=== PATIENT | female | born 1995 | race Caucasian/White ===

== ENCOUNTER 2024-07-21 01:13 | Emergency (ER) | payer OTHER, SELFPAY ==
[2024-07-21 01:24] VITALS: BP 130/86
[2024-07-21 01:52] VITALS: BP 135/79
[2024-07-21 02:00] VITALS: BP 127/88
[2024-07-21] MEDS: NSS 500 IV (02:20)
--- NOTE | 2024-07-21 02:30 | ED.GENMED ---
History of Present Illness
General
Chief Complaint: Headache
Source: patient
Exam Limitations: none
Time Seen by Provider: 07/21/24 01:30
Nursing documentation reviewed up to this point in time: agreed with
History of Present Illness
History of Present Illness:
Patient with history of 'migraine headache', presents to ED secondary to worsening headache tonight, despite taking Tylenol. Unfortunately, for the past 10 years, she has been experiencing very frequent headache at least multiple times during the
week, despite evaluation with a neurologist. There is family history of migraine headache. In addition, patient reports sore throat and painful swallowing over the past 2 days. However, patient denies loss of appetite and has been eating
normally. Denies nausea, vomiting, or diarrhea. Denies blurred vision. Denies dizziness. Denies recent travel. Denies sick contact. Denies recent change in medications or diet. Of note, patient has felt some weakness in her right arm over the
past 2 days as well.
Past History
Past History
ED Past Medical History: None
ED Past Surgical History: Other (Noncontributory)
Social History
Tobacco: Smoker (1/2ppd x 9y)
Alcohol: Occasional
Drug: Marijuana
Personal: Single
Living: with family
Family History
Family History: Other (Noncontributory)
Review of Systems
Review of Systems
Allergies reviewed?: Yes
All Other Systems: ROS reviewed and negative except as documented in HPI and ROS
Constitutional: Reports no symptoms; Denies fever
EENT: Reports sore throat
Respiratory: Reports no symptoms
Cardiac: Reports no symptoms
ABD/GI: Reports no symptoms
Musculoskeletal: Reports no symptoms
Skin: Reports no symptoms
Neurological: Reports headache and weakness; Denies dizzy or numbness
Phy Exam
Physical Exam
Physical Exam:
Physical Exam
General: mild distress, not acutely ill. afebrile
Head: nc/at. eomi
Neck: supple. no meningeal signs. normal posterior pharynx
Heart: s1/s2 regular rate and rhythm, no murmur. equal radial pulses.
Lungs: no acute respiratory distress. clear bilaterally
Abdomen: normal bowel sounds. not tender.
Neuro: alert and oriented x 3. no focal sensory/motor deficit. normal speech. normal gait.
Skin: no rash
Psychiatric: well kept. interactive and cooperative
Extremities: no edema. no calf tenderness.
Course
Orders/Labs/Results
Orders:
Orders
07/21/24 02:00
Test Result ONCE
07/21/24 02:01
CT Head W/o Iv Contrast Urgent
Comment:
Reason For Exam: headache
0.9% Sodium Chloride 500 ml [Nss] 500 ml IV BOLUS
Sumatriptan Succinate [Imitrex] 6 mg SC NOW STA
07/21/24 02:11
Basic Metabolic Panel Urgent
COVID-19 Antigen Urgent
Source: Nasal Swab
Complete Blood Count/No Diff Urgent
HCG, Serum Qualitative Screen Urgent
Magnesium Urgent
INF RAPID [Influenza A+B Rapid Molecular] Urgent
CAMRYN Source: Nasal Swab
Specimen Description:
07/21/24 03:49
Dexamethasone Pf [Decadron] 10 mg PO NOW STA
Ketorolac [Toradol] 30 mg IV NOW STA
Abnormal Lab Results
07/21/24
02:11
WBC 12.6 H 10^3/uL
(4.8-10.8)
Plt Count 598 H 10^3/uL
(130-400)
Calcium 10.5 H mg/dl
(8.4-10.2)
07/21/24 02:11
07/21/24 02:11
Vital Signs
Initial and Last Documented VS:
Initial Vital Signs
Temp Pulse Resp BP Pulse Ox
98.6 F 70 20 130/86 98
07/21/24 01:24 07/21/24 01:24 07/21/24 01:24 07/21/24 01:24 07/21/24 01:24
Last Documented Vital Signs
Temp Pulse Resp BP Pulse Ox
98.6 F 65 18 130/78 99
07/21/24 01:24 07/21/24 04:55 07/21/24 04:55 07/21/24 04:55 07/21/24 04:55
MDM/Problems Addressed
MDM/Problems Addressed:
CT head: no acute findings. Otherwise, patient remains afebrile, hemodynamically stable, and neurologically intact. Patient's presenting symptoms concerning for potential migraine headache versus cervical radiculopathy. As such, patient will be
advised to take NSAIDs along with muscle relaxant, as well as Medrol Dosepak, along with recommendation to follow-up with PCP/neurology for an outpatient evaluation.
*Critical Care Note
Total Time (30-74mins, 75-104mins- exclusive of procedures): Not Applicable
ED Attending Note
-
Portions of this chart may have been created with voice recognition software.� Occasional wrong word or��sound alike� substitutions may have occurred due to the inherent limitations of voice recognition software.
Discharge Plan
Departure
Patient Disposition: Home (Routine Discharge)
Date of Disposition: 07/21/24
Time of Disposition: 04:53
Patient with high blood pressure during this ER visit?: Yes
Discharge Problem:
Headache
Instructions: Headache, Adult (DC)
Prescriptions:
New
diclofenac sodium 50 mg tablet,delayed release (DR/EC)
50 mg PO Q12H PRN (Reason: Pain) Qty: 20 0RF
methylprednisolone [Medrol (Timo)] 4 mg tablets,dose pack
4 mg PO DAILY Qty: 21 0RF
No Action
clindamycin HCl 300 MG capsule
300 mg PO Q6 Qty: 40 0RF
ciprofloxacin HCl 500 MG tablet
500 mg PO BID Qty: 20 0RF
Referrals:
Salbador Hart MD [Active] -
Activity Restrictions/Additional Instructions:
As discussed, please follow-up with your primary care physician and/or referred neurologist for further evaluation and treatment. Your prescriptions have been sent electronically to [facility] pharmacy in [place].
Interventions
Interventions:
*Risk Screen - Suicide Last Done: 07/21/24 01:24
*General Assessment Last Done: 07/21/24 01:58
*Neglect/Abuse Screening Last Done: 07/21/24 01:24
*Nursing Disposition Last Done: 07/21/24 05:10
ED- Neurological Assessment Last Done: 07/21/24 01:58
Discharge Date and Time
Discharge Date/Time: 07/21/24 05:11
Print Language: YI
[2024-07-21 02:37] LABS: HCG, Serum Qualitative Screen Negative
[2024-07-21 02:42] LABS: Blood Urea Nitrogen 12 mg/dl (7-17); Calcium 10.5 mg/dl (8.4-10.2); Carbon Dioxide 23 mmol/L (22-30); Chloride 103 mmol/L (98-107); Glucose 94 mg/dl (70-99); Hematocrit 44.2 % (37.0-47.0); Hemoglobin 14.9 g/dL (12.0-16.0); Magnesium 1.8 mg/dl (1.6-2.3); Mean Corp Hgb Conc. 33.7 g/dL (33.0-37.0); Mean Corpuscular Hgb 30.8 pg (27.0-31.0); Mean Corpuscular Volume 91.5 fL (81.0-99.0); Mean Platelet Volume 9.7 fL (7.4-10.4); Platelet Count 598 10^3/uL (130-400); Potassium 4.3 mmol/L (3.5-5.1); Red Blood Cell Count 4.83 10^6/uL (4.20-5.40); Red Cell Dist. Width 13.2 % (11.5-14.5); Sodium 138 mmol/L (135-145); White Blood Cell Count 12.6 10^3/uL (4.8-10.8); eGFR > 60.00
[2024-07-21 02:43] LABS: COVID-19 Antigen Negative (Negative)
[2024-07-21] MEDS: IMITREX 6 MG SC (02:49)
[2024-07-21 03:00] VITALS: BP 144/98
[2024-07-21] MEDS: TORADOL 30 MG IV (03:57)
[2024-07-21] MEDS: DECADRON 10 MG PO (03:57)
[2024-07-21 04:55] VITALS: BP 130/78
== END 2024-07-21 05:11 | disposition home or self-care (01) ==
LOC: EMR 01:13
PROVIDERS: EMERGENCY PHYSICIAN Emergency Medicine; FAMILY PHYSICIAN Family Medicine
DX: R51.9 Headache, unspecified (principal); F17.210 Nicotine dependence, cigarettes, uncomplicated
CPT/HCPCS: 99284; 96374; 96372; 70450; 80048; 83735; 84703; 85027; 87502; 87811

== ENCOUNTER 2024-08-01 21:15 | Emergency (ER) | payer OTHER, SELFPAY ==
[2024-08-01 21:20] VITALS: BP 143/94
--- NOTE | 2024-08-01 23:33 | ED.GENMED ---
History of Present Illness
General
Chief Complaint: Skin Problem
Time Seen by Provider: 08/01/24 23:33
History of Present Illness
History of Present Illness:
TIME OF INITIAL ENCOUNTER: 12:25 AM
HPI: The patient presents with a few days of right sided upper medial buttock pain. The pain has been coming increasingly worse. She was recently on a Medrol Dosepak but not currently on any antibiotics. She has had no fevers. Her boyfriend used
tweezers and tried to drain some of the fluid but this was unsuccessful.
EXAM:
GENERAL: Well appearing in no distress
HEENT: Moist oral mucosa
NEUROLOGIC: Excellent strength all extremities, no obvious coordination deficits
PSYCHIATRIC: Appropriate mental status, normal insight and judgement
EXTREMITIES: Nontender, no edema, moves all extremities equally
SKIN: There is a 3 x 3 cm area of abscess to the medial upper buttock region
NUMBER AND COMPLEXITY OF PROBLEMS ADDRESSED AT THE ENCOUNTER
� Chronic conditions affecting care: History of migraines
� Acute Exacerbation and/or Progression of Chronic Illness: This is an acute problem
� Differential Diagnosis includes: Pilonidal abscess, buttock abscess, seroma, cellulitis
AMOUNT AND/OR COMPLEXITY OF DATA TO BE REVIEWED AND ANALYZED
� I performed an independent evaluation of and my interpretation is:
EKG:
CT:
X-rays:
Laboratory Studies:
Other:
� Review of other/old records: The patient was seen here for headache a couple of weeks ago and was also seen here for a migraine 7 years ago
� Clinical information was obtained by an independent historian: I spoke to her boyfriend at bedside
� Prescriptions/Medications Considered but not given: Offered and considered narcotic analgesia however the patient states she did not tolerate these in the past
� Further testing considered but not performed: No indication for blood work
RISK OF COMPLICATIONS AND/OR MORBIDITY OR MORTALITY OF PATIENT MANAGEMENT
� Social determinants of health affecting care: Lives at home
� Discussion with other providers:
� Escalation of care including admission/observation vs risk of discharge considered: I drained moderate amount of pus from the abscess. Will give a dose of Toradol for pain. She does not appear septic.
ANY OTHER UPDATES:
Past History
Past History
ED Past Medical History: None
ED Past Surgical History: Other (Noncontributory)
Social History
Tobacco: Smoker (1/2ppd x 9y)
Alcohol: Occasional
Drug: Marijuana
Personal: Single
Living: with family
Family History
Family History: Other (Noncontributory)
Phy Exam
Physical Exam
Physical Exam:
See HPI
Course
Orders/Labs/Results
Orders:
Orders
08/02/24 00:39
Ketorolac [Toradol] 30 mg IM NOW STA
Sulfamethox./Trimethoprim Ds [Bactrim Ds 800 mg/160 mg] 1 tablet PO NOW STA
Vital Signs
Initial and Last Documented VS:
Initial Vital Signs
Temp Pulse Resp BP Pulse Ox
36.7 C 111 16 143/94 99
08/01/24 21:20 08/01/24 21:20 08/01/24 21:20 08/01/24 21:20 08/01/24 21:20
Last Documented Vital Signs
Temp Pulse Resp BP Pulse Ox
36.7 C 93 16 121/82 100
08/01/24 21:20 08/02/24 00:26 08/01/24 21:20 08/02/24 00:26 08/02/24 00:26
Procedures
Incision/Drainage/Joint Aspiration
Right Upper Medial Buttock:
Anethesia: 1% Lidocaine with Epi
Preparation: cleaned with Hibiclens
Type of procedure: incise and drain
Nature of site: abscess
Description of abscess: greater than 3cm
Loculations broken up: Yes
How much fluid was obtained?: large amount
Fluid description: purulent
Treatment: left open for drainage
*Critical Care Note
Total Time (30-74mins, 75-104mins- exclusive of procedures): Not Applicable
ED Attending Note
-
Portions of this chart may have been created with voice recognition software.� Occasional wrong word or��sound alike� substitutions may have occurred due to the inherent limitations of voice recognition software.
Discharge Plan
Departure
Patient Disposition: Home (Routine Discharge)
Date of Disposition: 08/02/24
Time of Disposition: 00:44
Patient with high blood pressure during this ER visit?: Yes
Discharge Problem:
Pilonidal abscess
Instructions: Skin Abscess
Prescriptions:
New
sulfamethoxazole-trimethoprim [Bactrim DS] 800-160 mg tablet
1 tab PO BID Qty: 14 0RF
No Action
clindamycin HCl 300 MG capsule
300 mg PO Q6 Qty: 40 0RF
ciprofloxacin HCl 500 MG tablet
500 mg PO BID Qty: 20 0RF
diclofenac sodium 50 mg tablet,delayed release (DR/EC)
50 mg PO Q12H PRN (Reason: Pain) Qty: 20 0RF
methylprednisolone [Medrol (Timo)] 4 mg tablets,dose pack
4 mg PO DAILY Qty: 21 0RF
Referrals:
Josey Graves DO [Family Provider] -
Chema Jackson MD [Active] - Follow up in 10 days
Activity Restrictions/Additional Instructions:
I have given you the contact information for a local surgeon to follow-up with, Dr. Jackson. Return here if worse or other concerns. Next dose of antibiotics in the morning.
Interventions
Interventions:
*General Assessment Last Done: 08/01/24 21:20
*Neglect/Abuse Screening Last Done: 08/01/24 21:20
*ED COVID-19 Vaccine History Last Done: 08/01/24 21:20
Discharge Date and Time
Print Language: SERBIAN
[2024-08-02 00:26] VITALS: BP 121/82
[2024-08-02] MEDS: TORADOL 30 MG IM (00:46)
[2024-08-02] MEDS: BACTRIM DS 800 MG/160 MG 1 TABLET PO (00:47)
== END 2024-08-02 00:53 | disposition home or self-care (01) ==
LOC: EMR 21:15
PROVIDERS: EMERGENCY PHYSICIAN Emergency Medicine; FAMILY PHYSICIAN Family Medicine
DX: L05.01 Pilonidal cyst with abscess (principal); F17.210 Nicotine dependence, cigarettes, uncomplicated
CPT/HCPCS: 99282; 10060; 96372